=== PATIENT | male | born 1995 | race Caucasian/White ===

== ENCOUNTER 2021-08-11 19:45 | Emergency (ER) | payer SELFPAY ==
[~2021-08-11] VITALS: Ht 175.2 cm; Wt 74.8 kg
--- NOTE | 2021-08-11 20:22 | ED Cough/URI ---
General Chief Complaint: Fever-Adult/Adol Stated Complaint: JUSTINE,DIZZY,CHILLS,SWEATS, SORE THROAT, BODY ACHES Source: patient Exam Limitations: no limitations (STEPHANIE CULVER) History of Present Illness Date Seen by Provider: Aug 11, 2021 Time Seen by Provider: 20:20 Initial Comments Patient is a 25-year-old male who presents ED with flulike symptoms. Symptoms started last night with nasal congestion and sinus pressure. Woke up this morning with headache body aches fatigue weakness cough runny nose sore throat. Symptoms have been ongoing all day. States he recently moved to the area and is currently working on getting with the [employer]. Patient is requesting COVID swab. Patient denies of any known medical problems. Patient took NyQuil at home without much improvement. Denies of any known fever. He states he has had his COVID-vaccine as he was previously in the . Patient denies any vomiting, diarrhea, abdominal pain, chest pain, short of breath, visual changes. Patient is refusing any lab work and requesting COVID swab. Patient denies any drug use, alcohol use or smoking (STEPHANIE CULVER) Allergies and Home Medications Allergies Coded Allergies: shellfish derived (Verified Allergy, Unknown, 08/11/21) Patient Home Medication List Home Medication List Reviewed: Yes (STEPHANIE CULVER) Review of Systems Review of Systems Constitutional: chills, malaise EENTM: nose congestion, throat pain; No ear pain, No blurred vision, No double vision, No hoarseness, No mouth pain, No mouth swelling, No throat swelling Respiratory: No short of breath, No wheezing, No other Cardiovascular: No chest pain Gastrointestinal: No abdominal pain, No diarrhea, No nausea, No vomiting Genitourinary: No decreased output, No discharge Musculoskeletal: No back pain Skin: No change in color, No change in hair/nails Psychiatric/Neurological: Headache (STEPHANIE CULVER) All Other Systems Reviewed Negative Unless Noted: Yes (STEPHANIE CULVER) Physical Exam Vital Signs - First Documented 08/11/21 20:05 Temp 37.3 Pulse 109 Resp 14 B/P (MAP) 102/69 (80) Pulse Ox 95 (LATRICIA,JOE K DO) Capillary Refill : (STEPHANIE CULVER) Height: '" Weight: lbs. oz. 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, no motor/sensory deficits, alert, normal mood/affect, oriented x 3 Skin: normal color, warm/dry (STEPHANIE CULVER) Progress/Results/Core Measures Suspected Sepsis SIRS Temperature: Pulse: Respiratory Rate: Blood Pressure / Mean: (STEPHANIE CULVER) Results/Orders Lab Results Laboratory Tests Test 08/11/21 20:09 Range/Units Influenza Type A (RT-PCR) Not Detected Not Detecte Influenza Type B (RT-PCR) Not Detected Not Detecte SARS-CoV-2 RNA (RT-PCR) Detected H Not Detecte Group A Streptococcus Screen NEGATIVE NEGATIVE (JOE ROME DO) Micro Results Microbiology 08/11/21 Throat Culture - Final, Complete No Beta Strep isolated (JOE ROME DO) Vital Signs/I&O 08/11/21 08/11/21 20:05 21:28 Temp 37.3 Pulse 109 91 Resp 14 16 B/P (MAP) 102/69 (80) 102/69 Pulse Ox 95 95 (JOE ROME DO) Vital Signs/I&O Capillary Refill : (STEPHANIE CULVER) Departure Communication (PCP) Patient tested positive for COVID. Strep and flu was negative. Was slightly tachycardic but was afebrile. Patient states he is tolerating fluids. No vomiting, diarrhea. Had mild cough here. Denies history of smoking, asthma. No wheezing noted on exam. Symptoms started last night with nasal congestion and sinus pressure with body aches fatigue weakness and cough today. Patient without any known medical problems. No history of asthma, cardiac disease. Patient does not appear toxic however does appear ill. Refused any lab work, imaging at this time. He states he is requesting COVID swab so he can go to work or get a work note if positive. Patient was provided a work note for the next 5 days. If continued having symptoms recommend quarantine until symptoms resolve. He is up-to-date on his COVID-vaccine. Conservative treatment at this time as he is not considered high risk. Return precaution were discussed with patient. Discussed pulse ox to monitor oxygen level. (STEPHANIE CULVER) Impression Primary Impression: COVID-19 Disposition: 01 HOME, SELF-CARE Condition: Stable Departure-Patient Inst. Decision time for Depature: 21:23 (STEPHANIE CULVER) Referrals: [facility] [place] Patient Instructions: COVID-19 (DC) Add. Discharge Instructions: Recommend quarantine and isolate for 5 days. If continue having symptoms continue quarantine until symptoms resolve. All discharge instructions reviewed with patient and/or family. Voiced understanding. Work/School Note: Work Release Form Date Seen in the Emergency Department: Aug 11, 2021 Return to Work: Aug 18, 2021 ATTENDING PHYSICIAN NOTE: I WAS PHYSICALLY PRESENT ER PHYSICIAN, BUT I WAS NOT INVOLVED IN ANY DECISION MAKING OR ANY CARE OF THIS PATIENT. (JOE ROME DO) STEPHANIE CULVER Aug 11, 2021 20:22 JOE ROME DO Aug 14, 2021 05:49
[2021-08-11] MEDS ORDERED: IBUPROFEN 600 MG (MOTRIN) TAB PO ONE (20:30)
[2021-08-11 21:28] VITALS: BP 102/69
== END 2021-08-11 21:30 | disposition home or self-care (01) ==
LOC: ER 19:52
DX: U07.1 COVID-19 (principal)
CPT/HCPCS: 87430; 87636; 99283